=== PATIENT | male | born 1950 | race Caucasian/White ===

== ENCOUNTER 2019-03-07 06:12 | Day surgery (SDC) | payer OTHER, MEDICARE ==
[2019-03-06 08:59] VITALS: BMI 27.1
[2019-03-07] MEDS ORDERED: ERYTHROMYCIN 0.5% OPHTHALMIC OINTMENT 3.5 GM TUBE ONE (07:01)
[2019-03-07] MEDS ORDERED: LIDOCAINE 1%/EPI 1:100000 (20 ML MULTI DOSE VIAL) ONE (07:02)
[2019-03-07] MEDS ORDERED: BUPIVACAINE HCL/PF 0.5% (5MG/ML) 10 ML VIAL ONE (07:02)
[2019-03-07] MEDS ORDERED: TETRACAINE 0.5% OPHTH SOLN 2 ML BOTTLE ONE (07:02)
[2019-03-07] MEDS ORDERED: POVIDONE-IODINE 5% OPHTHALMIC PREP 30 ML SOLUTION ONE (07:09)
[2019-03-07] MEDS ORDERED: MIDAZOLAM HCL 2 MG/2 ML SINGLE DOSE VIAL ONE ×2 (07:29)
[2019-03-07] MEDS ORDERED: PROPOFOL 20 ML ONE ×3 (07:29)
[2019-03-07] MEDS ORDERED: ceFAZolin SODIUM 1 GM VIAL ONE (07:52)
[2019-03-07] MEDS ORDERED: TETRACAINE 0.5% HCL 0.6ML DROPPER.BOTTLE OU ONE (07:53)
[2019-03-07] MEDS ORDERED: oxyCODONE HCL 5 MG TABLET PO PRN (09:20)
[2019-03-07] MEDS ORDERED: ONDANSETRON 4 MG/2 ML VIAL IVPUSH PRN (09:20)
[2019-03-07] MEDS ORDERED: LACTATED RINGERS SOLUTION 1,000 ML IV SCH (09:30)
[2019-03-07] MEDS ORDERED: ACETAMINOPHEN 325 MG TABLET (FP) ONE (10:36)
[2019-03-07 10:41] VITALS: TEMP 98.3
--- NOTE | 2019-03-07 10:46 | OP ---
DATE OF OPERATION: 03/07/2019 PREOPERATIVE DIAGNOSIS: Basal cell carcinoma, right lower lid. POSTOPERATIVE DIAGNOSIS: Basal cell carcinoma, right lower lid. PROCEDURE: 1. Full-thickness wedge resection, right lower lid. 2. Lateral myocutaneous flap, right lower lid. 3. Right lateral canthoplasty. SURGEON: Daryl Garcia MD ANESTHESIA: Local with sedation. COMPLICATONS: None. ESTIMATED BLOOD LOSS: 3-5 mL. OPERATION REPORT: Patient was brought to the operating room, placed on the operating room table. Vital signs monitored by Anesthesia. Defect was photographed. Tetracaine was placed in both eyes. Time-out was performed. Inverted pentagon and a lateral canthal rotation flap were marked, and after intravenous sedation, a 50/50 mixture of 2% Xylocaine with 1:100,000 epinephrine, 0.5% Marcaine. was injected subcutaneously throughout the right lower lid, lateral canthus, down to periosteum and lateral rotation flap. Massage was applied for hemostasis. Patient was prepped and draped in the usual sterile fashion exposing both eyes. A full-thickness wedge resection after prepping and draping was excised in the area where the marginal defect existed creating a defect, which could not be approximated primarily. A semicircular flap was incised at the lateral canthus superiorly, and a submuscular plane was dissected down to the lateral canthal tendon. The inferior bry of the lateral canthal tendon was then , dissected off of the lateral orbital rim, and the inferior bry of the lateral canthal tendon was released allowing rotation of the lateral portion of the eyelid nasally. The eyelid was reapproximated with three interrupted 6-0 silk sutures, one through the lash line, one through the posterior mucocutaneous junction, and a vertical mattress through the zimmer line creating a central pucker. These were looped superiorly, and the tarsus and retractors were then closed with interrupted 6-0 Vicryl sutures. The lid was everted demonstrating no penetration of the sutures. The muscle layer was closed with 5-0 chromic and the skin with interrupted and running 6-0 plain suture removing the standing cutaneous deformity. Margins sutures were looped inferonasally and secured to the skin with a single 6-0 silk suture. The lateral canthal angle was now reformed by measuring the contralateral width of the palpebral fissure 29-30 mm. At a similar distance, cary was made, and the lateral canthal angle was reformed with a buried 5-0 chromic to the zimmer line of the upper and lower lid and the advanced skin muscle flap to the lower lid creating the lateral canthus. The flap itself was secured to the fascial tissues with a 5-0 Vicryl suture deeply, and then, the lateral canthal angle was tailored to be an almond shape, and the muscle layer was closed with 5-0 chromic and the skin with interrupted 6-0 plain suture in plastic technique. Erythromycin ointment was placed in the eye and on the sutures, and the patient was taken to the recovery room in stable condition. Nithya [id number]
[2019-03-07 11:01] VITALS: BP 131/85; PULSE 76
--- NOTE | 2019-03-10 15:42 | PATH ---
Surgical Pathology Report Patient Name: LO HERNANDEZ [facility]. Rec. #: [id number] /Age/Gender: 1950 (Age: 68) / M Account: [id number] Location: [facility] AM[facility] Taken: 03/07/2019 Received: 03/07/2019 Reported: 03/10/2019 Physicians: Daryl Garcia Specimen(s) Received RIGHT LOWER EYELID Clinical History Basal cell cancer right lower eyelid Final Diagnosis LOWER EYELID, RIGHT, RECONSTRUCTION: CONJUNCTIVAL TISSUE SHOWING ACUTE INFLAMMATION AND FOCAL SURFACE EROSION. Electronically Signed Manuela Gonzalez M.D. Gross Description Received in formalin labeled "right lower eyelid," is a 0.5 x 0.5 cm brown skin shave. The base is inked green and the specimen is bisected. The specimen is submitted in toto in one cassette. /03/08/201903/08/2019
== END 2019-03-07 11:10 | disposition home or self-care (01) ==
LOC: FASU 06:12
PROVIDERS: ATTEND Ophthalmology
PROC: 0KX10ZZ Transfer Facial Muscle, Open Approach (ICD-10-PCS; 2019-03-07)
PROC: 08SQ0ZZ Reposition Right Lower Eyelid, Open Approach (ICD-10-PCS; principal; 2019-03-07 08:01)
DX: C44.1122 Basal cell carcinoma of skin of right lower eyelid, including canthus (principal); H02.89 Other specified disorders of eyelid
CPT/HCPCS: 88304-TC; 94760